=== PATIENT | female | born 1940 | race Caucasian/White ===

== ENCOUNTER 2021-07-02 13:31 | Outpatient (CLI) | payer MEDICARE, OTHER ==
--- NOTE | 2021-07-02 14:48 | XRAY Report ---
PROCEDURE: Wrist 3 View RT INDICATIONS: RIGHT HAND PAIN TECHNIQUE: 3 views of the wrist were acquired. COMPARISON: None FINDINGS: Bones: There is suggestion of prior surgical resection of trapezium. Osteoarthritic changes are note d throughout wrist joints more prominent involving first CMC joint. No acute fractures or dislocation s. No suspicious bony lesions. Scaphoid view: Scaphoid is grossly intact. Soft tissues: No suspicious soft tissue calcifications. IMPRESSION: Osteoarthritis throughout wrist joints. Suggestion of prior resection of trapezium. No acute fracture or dislocation. No suspicious bony lesion. Reviewed by: Philip Sepulveda MD on 07/02/2021 2:46 PM PST Approved by: Philip Sepulveda MD on 07/02/2021 2:46 PM PST Station ID: [id number]
--- NOTE | 2021-07-02 17:08 | XRAY Report ---
PROCEDURE: Hand 3 View RT INDICATIONS: PAIN IN RIGHT HAND TECHNIQUE: 3 views of the hand(s) acquired. COMPARISON: None FINDINGS: Bones: Trapezium is surgically absent. No fractures or dislocations. No suspicious bony lesions. No osseous erosive changes. Osteophytic degenerative changes noted in the carpal-metacarpal joints. Soft tissues: No suspicious soft tissue calcifications. IMPRESSION: 1. Status post surgical resection of trapezium. 2. No fracture. No acute osseous lesion. If there persistent symptoms or continued clinical concern f or pathology, then repeat plain film radiographs (7-10 days) or advanced imaging (CT, MR, bone scan) should be considered for further evaluation. 3. Wrist osteoarthritis. Reviewed by: Misa Birmingham MD, PhD on 07/02/2021 5:06 PM PST Approved by: Misa Birmingham MD, PhD on 07/02/2021 5:06 PM [facility] Station ID: [id number]
== END 2021-07-02 13:32 | disposition home or self-care (01) ==
LOC: DI.S 13:31
PROVIDERS: ATTEND Nurse Practitioner Family
DX: M19.031 Primary osteoarthritis, right wrist (principal); M19.041 Primary osteoarthritis, right hand

== ENCOUNTER 2022-04-23 15:14 | Outpatient (CLI) | payer MEDICARE, OTHER ==
--- NOTE | 2022-04-24 00:04 | DEXA Report ---
PROCEDURE: Dexa Spine and/or Hip INDICATIONS: POST MENOPAUSAL TECHNIQUE: Dual energy x-ray absorptiometry (DXA) was performed on a BRA[employer]IGIT System. Regions measur ed are the AP Spine, femoral neck, and if needed forearm. COMPARISON: None. FINDINGS: Lumbar Spine: Bone Mineral Density 1.305 g/cm/cm,T score 1.0. Left Hip: Bone Mineral Density 1.015 g/cm/cm,T score 0.1. Left Femoral Neck: Bone Mineral Density 0.954 g/cm/cm, T score -0.6. (T score greater or equal to -1.0: NORMAL) (T score from -1.1 to -2.4: OSTEOPENIA) (T score less than or equal to -2.5 to: OSTEOPOROSIS) Impression: Normal bone mineral density. Patients with diagnosis of osteoporosis or osteopenia should have regular bone mineral density assess ment. For those eligible for Medicare, routine testing is allowed once every 2 years. Testing frequ ency can be increased for patients who have rapidly progressing disease or for those who are receivin g medical therapy to restore bone mass. Reviewed by: Philip Sepulveda MD on 04/24/2022 12:03 AM PDT Approved by: Philip Sepulveda MD on 04/24/2022 12:03 AM PDT Station ID: [id number]
== END 2022-04-23 15:15 | disposition home or self-care (01) ==
LOC: DI 15:14
PROVIDERS: ATTEND Nurse Practitioner Family
DX: Z78.0 Asymptomatic menopausal state (principal)